=== PATIENT | female | born 1990 | race Two or more races ===

== ENCOUNTER 2019-03-08 15:18 | Emergency (ER) | payer BC ==
[2019-03-08] MEDS ORDERED: ACETAMINOPHEN 325 MG TABLET PO ONE (16:11)
--- NOTE | 2019-03-08 16:15 | ER Document Report ---
ED Medical Screen (RME) - General Chief Complaint: High Blood Pressure Stated Complaint: HIGH BLOOD PRESSURE Time Seen by Provider: 03/08/19 16:07 Notes: Patient is a G1, P0 28-year-old female who presents to the emergency department for an elevated blood pressure reading. Patient states that her blood pressure earlier was 152/102. Patient also states that she has a headache. She has not taken anything to help with her headache. Patient denies any abdominal pain, or any other symptoms. Denies any vomiting. Exam: Soft, nontender abdomen. Blood pressure here in the emergency department is 147/87. I have greeted and performed a rapid initial assessment of this patient. A comprehensive ED assessment and evaluation of the patient, analysis of test results and completion of medical decision making process will be conducted by an additional ED providers. Past Medical History - Social History Chew tobacco use (# tins/day): No Frequency of alcohol use: None Drug Abuse: None Physical Exam - Vital signs Vitals: Temp Pulse Resp BP Pulse Ox 98.3 F 96 20 147/87 H 98 03/08/19 15:24 03/08/19 15:24 03/08/19 15:24 03/08/19 15:24 03/08/19 15:24 Course - Vital Signs Vital signs: Temp Pulse Resp BP Pulse Ox 98.3 F 96 20 147/87 H 98 03/08/19 16:05 03/08/19 16:05 03/08/19 16:05 03/08/19 16:05 03/08/19 16:05
[2019-03-08 17:15] LABS: ALBUMIN 3.9 g/dL (3.5-5.0); ALKALINE PHOSPHATASE 59 U/L (38-126); ANION GAP 8 (5-19); ASPARTATE AMINO TRANSFERASE 16 U/L (14-36); BILIRUBIN,DIRECT 0.1 mg/dL (0.0-0.4); BILIRUBIN,TOTAL 0.2 mg/dL (0.2-1.3); BLOOD UREA NITROGEN 9 mg/dL (7-20); CALCIUM 9.5 mg/dL (8.4-10.2); CARBON DIOXIDE 22 mmol/L (22-30); CHLORIDE 108 mmol/L (98-107); GLUCOSE 89 mg/dL (75-110); POTASSIUM 4.2 mmol/L (3.6-5.0); TOTAL PROTEIN 7.1 g/dL (6.3-8.2)
[2019-03-08 17:23] LABS: ABSOLUTE EOSINOPHILS # (AUTO) 0.3 10^3/uL (0.0-0.6); ABSOLUTE LYMPHOCYTES (AUTO) 2.3 10^3/uL (0.5-4.7); ABSOLUTE MONOCYTES (AUTO) 0.8 10^3/uL (0.1-1.4); ABSOLUTE NEUT (AUTO) 8.2 10^3/uL (1.7-8.2); BASOPHILS % (AUTO) 0.4 % (0-2); EOSINOPHILS % (AUTO) 2.3 % (0-6); HEMATOCRIT 36.5 % (36.0-47.0); MEAN CORPUSCULAR HEMOGLOBIN 25.9 pg (27.0-33.4); MEAN CORPUSCULAR HGB CONC 32.8 g/dL (32.0-36.0); MEAN CORPUSCULAR VOLUME 79 fl (80-97); MONOCYTES % (AUTO) 6.8 % (3-13); PLATELET COUNT 343 10^3/uL (150-450); RED BLOOD COUNT 4.62 10^6/uL (3.72-5.28); RED CELL DISTRIBUTION WIDTH 14.6 % (11.5-14.0); SEGMENTED NEUTROPHILS % (AUTO) 70.5 % (42-78); TOTAL CELLS COUNTED % (AUTO) 100 %; WHITE BLOOD COUNT 11.6 10^3/uL (4.0-10.5)
[2019-03-08 17:43] LABS: AMORPHOUS SEDIMENT,URINE TRACE /HPF; APPEARANCE,URINE CLOUDY; BILIRUBIN,URINE NEGATIVE (NEGATIVE); COLOR,URINE YELLOW; GLUCOSE, URINE NEGATIVE (NEGATIVE); KETONES,URINE NEGATIVE (NEGATIVE); LEUKOCYTE ESTERASE,URINE LARGE (NEGATIVE); NITRITE,URINE NEGATIVE (NEGATIVE); PROTEIN,URINE NEGATIVE (NEGATIVE); URINE SPECIFIC GRAVITY 1.017; UROBILINOGEN,URINE NEGATIVE mg/dL (<2.0)
--- NOTE | 2019-03-08 20:45 | ER Document Report ---
ED General - General Chief Complaint: High Blood Pressure Stated Complaint: HIGH BLOOD PRESSURE Time Seen by Provider: 03/08/19 16:07 Primary Care Provider: KUN ROJAS MD [Primary Care Provider] - Follow up as needed Notes: Patient is a 28-year-old female that comes to the emergency department for chief complaint of headache and elevated blood pressure reading. Patient is G1, P0 at 17 weeks gestation. She states she was at work when she started getting a bad headache, she states that her boss checked her blood pressure and her blood pressure was 150 systolic and she was recommended to go to the emergency department. Patient states that after Tylenol her headache completely resolved, she states she feels fine otherwise. She denies nausea vomiting, chest pain, abdominal pain, vaginal bleeding or discharge. She denies any diagnosed medical problems or daily medications. Past Medical History - General Information source: Patient - Social History Smoking Status: Never Smoker Chew tobacco use (# tins/day): No Frequency of alcohol use: None Drug Abuse: None Lives with: Family Family History: Reviewed & Not Pertinent Patient has suicidal ideation: No Patient has homicidal ideation: No Surgical Hx: Negative - Immunizations Immunizations up to date: Yes Hx Diphtheria, Pertussis, Tetanus Vaccination: Yes Review of Systems - Review of Systems Constitutional: No symptoms reported EENT: No symptoms reported Cardiovascular: No symptoms reported Respiratory: No symptoms reported Gastrointestinal: No symptoms reported Genitourinary: No symptoms reported Female Genitourinary: No symptoms reported Musculoskeletal: No symptoms reported Skin: No symptoms reported Hematologic/Lymphatic: No symptoms reported Neurological/Psychological: No symptoms reported Physical Exam - Vital signs Vitals: Temp Pulse Resp BP Pulse Ox 98.3 F 96 20 147/87 H 98 03/08/19 15:24 03/08/19 15:24 03/08/19 15:24 03/08/19 15:24 03/08/19 15:24 - Notes Notes: GENERAL: Alert, interacts well. No acute distress. HEAD: Normocephalic, atraumatic. EYES: Pupils equal, round, and reactive to light. Extraocular movements intact. ENT: Oral mucosa moist, tongue midline. Oropharynx unremarkable. Airway patent. NECK: Full range of motion. Supple. Trachea midline. LUNGS: Clear to auscultation bilaterally, no wheezes, rales, or rhonchi. No respiratory distress. HEART: Regular rate and rhythm. No murmur ABDOMEN: Slightly gravid abdomen, nontender GENITOURINARY: Deferred EXTREMITIES: Moves all 4 extremities spontaneously. No edema, normal radial and dorsalis pedis pulses bilaterally. No cyanosis. BACK: no cervical, thoracic, lumbar midline tenderness. No saddle anesthesia, normal distal neurovascular exam. Moves all extremities in full range of motion. NEUROLOGICAL: Alert and oriented x3. Normal speech. Cranial nerves II through XII grossly intact. PSYCH: Normal affect, normal mood. SKIN: Warm, dry, normal turgor. No rashes or lesions noted. Course - Re-evaluation Re-evalutation: Blood pressure rechecked after I evaluate the patient and is in the 120s over 80s. Patient is before 20 weeks gestation, she does not currently have a headache, she denies chest pain, renal function unremarkable, LFTs, platelets, and urinalysis unremarkable without protein but is also contaminated and was therefore cultured. hCG unremarkable and elevated. Patient with no complaints asking to go home. Discussed all results with patient at length, discussed expectations, monitoring, OT and follow-up, and return precautions. She states appreciation and agreement. - Vital Signs Vital signs: Temp Pulse Resp BP Pulse Ox 98.4 F 98 22 H 128/88 H 99 03/08/19 20:54 03/08/19 20:54 03/08/19 20:54 03/08/19 20:54 03/08/19 20:54 - Laboratory Result Diagrams: 03/08/19 17:00 03/08/19 16:42 Laboratory results interpreted by me: 03/08/19 03/08/19 03/08/19 16:27 16:42 17:00 WBC 11.6 H MCV 79 L MCH 25.9 L RDW 14.6 H Chloride 108 H Beta HCG, Quant 52471.00 H Ur Leukocyte Esterase LARGE H Discharge - Discharge Clinical Impression: Elevated blood pressure reading Headache Qualifiers: Headache type: unspecified Headache chronicity pattern: acute headache Intractability: not intractable Qualified Code(s): R51 - Headache Condition: Stable Disposition: HOME, SELF-CARE Additional Instructions: Your evaluation today is reassuring. Take Tylenol for headache if needed, you can also take [id number] diphenhydramine for headaches in , stay hydrated and rest. 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 Return for any concerning symptoms including severe headache, vomiting, or any other concerning or worsening symptoms. Forms: Return to Work Referrals: KUN ROJAS MD [Primary Care Provider] - Follow up as needed
[2019-03-08 20:55] VITALS: BP 128/88
== END 2019-03-08 20:54 | disposition home or self-care (01) ==
LOC: ER 15:18
DX: O26.892 Other specified pregnancy related conditions, second trimester (principal); R03.0 Elevated blood-pressure reading, without diagnosis of hypertension; R51 Headache; Z3A.17 17 weeks gestation of pregnancy
CPT/HCPCS: 36415; 80053; 81001; 83735; 84702; 85025; 87086; 99283

== ENCOUNTER 2019-08-06 04:27 | Inpatient (IN) | payer BC ==
[2019-08-06 05:19] LABS: APPEARANCE,URINE CLOUDY; BILIRUBIN,URINE NEGATIVE (NEGATIVE); COLOR,URINE YELLOW; GLUCOSE, URINE NEGATIVE (NEGATIVE); KETONES,URINE NEGATIVE (NEGATIVE); LEUKOCYTE ESTERASE,URINE LARGE (NEGATIVE); NITRITE,URINE NEGATIVE (NEGATIVE); PROTEIN,URINE 30 mg/dL (NEGATIVE); URINE SPECIFIC GRAVITY 1.008; UROBILINOGEN,URINE NEGATIVE mg/dL (<2.0)
[2019-08-06 05:34] LABS: URINE AMPHETAMINES SCREEN NEGATIVE; URINE BARBITURATES SCREEN NEGATIVE; URINE BENZODIAZEPINES SCREEN NEGATIVE; URINE COCAINE SCREEN NEGATIVE; URINE MARIJUANA (THC) SCREEN NEGATIVE; URINE METHADONE SCREEN NEGATIVE; URINE PHENCYCLIDINE SCREEN NEGATIVE
[2019-08-06] MEDS ORDERED: RINGERS SOLUTION,LACTATED 1,000 ML IV ONE (05:53)
[2019-08-06] MEDS ORDERED: RINGERS SOLUTION,LACTATED 1,000 ML IV PRN (05:53)
[2019-08-06] MEDS ORDERED: MISOPROSTOL 0.2 MG TABLET ONE ×2 (06:09→07:38)
[2019-08-06] MEDS ORDERED: OXYTOCIN 10 UNIT/ML VIAL ONE ×2 (06:09→07:38)
[2019-08-06] MEDS ORDERED: OXYTOCIN/NORMAL SALINE 0 UNIT/0 ML RTUINJ ONE (06:09)
[2019-08-06] MEDS ORDERED: LIDOCAINE 1% INJ-PF (10 MG/ML) 30 ML SDV ONE ×2 (06:09→07:38)
[2019-08-06] MEDS ORDERED: GENTAMICIN SULFATE INJ 80 MG/2 ML VIAL IM ONE (06:33)
[2019-08-06] MEDS ORDERED: GENTAMICIN SULFATE INJ 80 MG/2 ML VIAL IV ONE (06:33)
[2019-08-06] MEDS ORDERED: AMPICILLIN SOD INJ 2 GM VIAL ONE (06:34)
[2019-08-06 06:46] LABS: ABSOLUTE BASOPHILS # (AUTO) 0.1 10^3/uL (0.0-0.2); ABSOLUTE EOSINOPHILS # (AUTO) 0.2 10^3/uL (0.0-0.6); ABSOLUTE MONOCYTES (AUTO) 0.9 10^3/uL (0.1-1.4); ABSOLUTE NEUT (AUTO) 7.8 10^3/uL (1.7-8.2); BASOPHILS % (AUTO) 0.7 % (0-2); EOSINOPHILS % (AUTO) 1.5 % (0-6); HEMATOCRIT 34.8 % (36.0-47.0); HEMOGLOBIN 11.6 g/dL (12.0-15.5); MEAN CORPUSCULAR HEMOGLOBIN 23.6 pg (27.0-33.4); MEAN CORPUSCULAR HGB CONC 33.3 g/dL (32.0-36.0); MEAN CORPUSCULAR VOLUME 71 fl (80-97); MONOCYTES % (AUTO) 8.5 % (3-13); PLATELET COUNT 339 10^3/uL (150-450); RED CELL DISTRIBUTION WIDTH 17.4 % (11.5-14.0); SEGMENTED NEUTROPHILS % (AUTO) 71.3 % (42-78); TOTAL CELLS COUNTED % (AUTO) 100 %; WHITE BLOOD COUNT 10.9 10^3/uL (4.0-10.5)
[2019-08-06] MEDS ORDERED: GENTAMICIN SULFATE INJ 80 MG/2 ML VIAL ONE (07:01)
--- NOTE | 2019-08-06 07:10 | Admission Physical ---
Datetime Report Generated by CPN: 08/06/2019 07:10 CURRENT ADMISSION Chief Complaint: Suspected Ruptured Membranes Indication for Induction: PROM Admit Impression : Term, Intrauterine ; No Active Labor; Ruptured Membranes; Induction of Labor Admit Plan: Admit to Unit; Initiate Labor Induction Protocol ALLERGIES Medication Allergies: No Medication Allergies: No Known Allergies (08/06/2019) Latex: No Latex Allergies OBSTETRICAL HISTORY EDC: 08/10/2019 00:00 : 1 Para: 0 Term: 0 : 0 SAB: 0 IAB: 0 Livin Cesareans: 0 VBACs: 0 Multiple Births: 0 Gestational Diabetes: Yes Rh Sensitization: No Incompetent Cervix: No SUSAN: No Infertility: No ART Treatment: No Uterine Anomaly: No IUGR: No Hx Previous C/S: No Macrosomia: No Hx Loss/Stillborn: No PIH: No Hx : No Placenta Previa/Abruption: No Depression/PP Depression: No PTL/PROM: No Post Hemorrhage: No Current Procedures: Ultrasound; NST SEE RECORDS Alcohol: No Marijuana : No Cocaine: No Other Illicit Drugs: No Cigarettes: Never Smoker. 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 Heart Disease: No Hosp/Surgery: No Autoimmune Disorder: No Anesthetic Complications: No Kidney Disease: No Abnormal Pap Smear: No Neuro/Epilepsy: No Psychiatric Disorders: No Other Medical Diseases: No Hepatitis/Liver Disease: No Significant Family History: No Varicosities/Phlebitis: No Trauma/Violence : No Thyroid Dysfunction: No INFECTIOUS HISTORY Gonorrhea: No Genital Herpes: No Chlamydia: No Tuberculosis: No Syphilis: No Hepatitis: No HIV/AIDS Exposure: No Rash or Viral Illness: No HPV: No PHYSICAL EXAM General: Normal HEENT: Normal Neurologic: Normal Thyroid: Deferred Heart: Normal Lungs: Normal Breast: Deferred Back: Normal Abdomen: Normal Genitourinary Exam: Normal Extremities: Normal DTRs: Normal Pelvic Type: Adequate Vital Signs: Reviewed VAGINAL EXAM Dilatation: 3 Effacement: 75 Station: -2 Contraction Comments: rare MEMBRANES Membranes: Ruptured Amniotic Fluid Color: Clear FETUS A EGA: 39.3 Monitoring: External US FHR- Baseline: 125 Variability: Moderate 6-25bpm Accelerations: 15X15 Decelerations: None FHR Category: Category I Presentation: Vertex Admit Comment: 29yo at 39+3ega presents for rupture of memranes at approx 1100 on 08/04. A2GDM - gyburide. cvx /-2 at last visit. GBS negative. Prolonged rupture of membranes. Start Amp/Gent for prolonged Rupture of membranes. Anticipate . Pitocin for IOL. PLANS FOR LABOR AND DELIVERY Pain Management: None Feeding Preference: Both INFORMED CONSENT Informed Consent Obtained: Vaginal Delivery; Induction of Labor; Risks, Benefits and Alternatives Discussed Signature: with User ID: [email or web address]
[2019-08-06] MEDS ORDERED: OXYTOCIN/NORMAL SALINE 20 UNIT/1,000 ML RTUINJ IV PRN ×2 (07:12→19:55)
[2019-08-06] MEDS ORDERED: OXYTOCIN/NORMAL SALINE 20 UNIT/1,000 ML RTUINJ ONE (07:38)
[2019-08-06] MEDS ORDERED: WATER IV ONE (08:30)
[2019-08-06] MEDS ORDERED: DEXTROSE 5% IV ONE (08:30)
[2019-08-06] MEDS ORDERED: GENTAMICIN SULFATE IV ONE (08:30)
[2019-08-06] MEDS ORDERED: AMPICILLIN SODIUM 1 GM in NORMAL SALINE 50 ML IV SCH (12:00)
[2019-08-06] MEDS ORDERED: AMPICILLIN SOD INJ 1 GM VIAL ONE (12:28)
[2019-08-06] MEDS: AMPICILLIN SODIUM 1 GM in NORMAL SALINE 50 ML IV SCH ×2 (12:45→18:40)
[2019-08-06] MEDS ORDERED: MORPHINE SULFATE 10 MG/ML INJ IV ONE (13:24)
[2019-08-06] MEDS ORDERED: PROMETHAZINE HCL INJ 25 MG/1 ML VIAL IV ONE (13:24)
[2019-08-06] MEDS ORDERED: MORPHINE SULFATE 10 MG/ML INJ ONE (13:30)
[2019-08-06] MEDS ORDERED: PROMETHAZINE HCL INJ 25 MG/1 ML VIAL ONE (13:30)
[2019-08-06] MEDS ORDERED: GENTAMICIN SULFATE INJ 80 MG/2 ML VIAL IV SCH (14:00)
[2019-08-06] MEDS ORDERED: GENTAMICIN SULFATE 175 MG in DEXTROSE 5%-WATER 100 ML IV SCH (15:00)
[2019-08-06] MEDS ORDERED: EPHEDRINE SULFATE INJ 50 MG/1 ML AMPULE ONE (17:11)
[2019-08-06] MEDS ORDERED: BUPIVACAINE HCL 0.25 % INJ/PF (2.5 MG/1 ML) 30 ML VIAL ONE (17:12)
[2019-08-06] MEDS ORDERED: FENTANYL/BUPIVACAINE/NS/PF 0 MCG/0 ML RTUINJ EPI ONE (17:12)
[2019-08-06] MEDS ORDERED: ACETAMINOPHEN 650 MG SUPP.RECT PR PRN (19:55)
[2019-08-06] MEDS ORDERED: ACETAMINOPHEN WITH CODEINE #3 TABLET PO PRN ×2 (19:55)
[2019-08-06] MEDS ORDERED: PSEUDOEPHEDRINE HCL 30 MG TABLET PO PRN (19:55)
[2019-08-06] MEDS ORDERED: PROMETHAZINE HCL 25 MG TABLET PO PRN (19:55)
[2019-08-06] MEDS ORDERED: DIPHENHYDRAMINE HCL 25 MG CAPSULE PO PRN (19:55)
[2019-08-06] MEDS ORDERED: ZOLPIDEM TARTRATE 5 MG TABLET PO PRN (19:55)
[2019-08-06] MEDS ORDERED: GLYCERIN/WITCH HAZEL LEAF 1 EACH MED..WIPE TP PRN (19:55)
[2019-08-06] MEDS ORDERED: DIPH/PERTUSS(ACELL)/TETANUS VAC/PF 0.5 ML SYR (>=10YO) IM PRN (19:55)
[2019-08-06] MEDS ORDERED: BENZOCAINE/MENTHOL AEROSOL SPRAY 56 ML TOP PRN (19:55)
[2019-08-06] MEDS ORDERED: MEASLES,MUMPS&RUBELLA VACC/PF 0.5 ML VIAL SUBCUT PRN (19:55)
[2019-08-06] MEDS ORDERED: PROMETHAZINE HCL 25 MG SUPP.RECT PR PRN (19:55)
[2019-08-06] MEDS ORDERED: PROMETHAZINE HCL INJ 25 MG/1 ML VIAL IV PRN (19:55)
[2019-08-06] MEDS ORDERED: MAGNESIUM HYDROXIDE SUSP 30 ML UDCUP PO PRN (19:55)
[2019-08-06] MEDS ORDERED: DIBUCAINE 1% OINTMENT 28 GM TP PRN (19:55)
[2019-08-06] MEDS ORDERED: NA PHOS,M-B/NA PHOS,DI-BA (ADULT) 133 ML ENEMA PR PRN (19:55)
[2019-08-06] MEDS: FAMOTIDINE 20 MG TABLET PO SCH (23:28)
[2019-08-06] MEDS: IBUPROFEN 800 MG TABLET PO SCH (23:28)
[2019-08-07] MEDS: IBUPROFEN 800 MG TABLET PO SCH ×3 (05:13→21:35)
[2019-08-07 06:57] LABS: HEMATOCRIT 31.9 % (36.0-47.0); HEMOGLOBIN 10.6 g/dL (12.0-15.5); MEAN CORPUSCULAR HEMOGLOBIN 23.4 pg (27.0-33.4); MEAN CORPUSCULAR HGB CONC 33.4 g/dL (32.0-36.0); MEAN CORPUSCULAR VOLUME 70 fl (80-97); PLATELET COUNT 365 10^3/uL (150-450); RED BLOOD COUNT 4.54 10^6/uL (3.72-5.28); RED CELL DISTRIBUTION WIDTH 17.4 % (11.5-14.0); WHITE BLOOD COUNT 21.4 10^3/uL (4.0-10.5)
[2019-08-07] MEDS: SENNOSIDES/DOCUSATE 8.6-50 MG 1 EACH TABLET PO SCH (10:12)
[2019-08-07] MEDS: FAMOTIDINE 20 MG TABLET PO SCH ×2 (10:12→21:35)
[2019-08-07] MEDS: PRENATAL VITAMIN W DHA CAPSULE PO SCH (10:12)
[2019-08-07] MEDS: DOCUSATE SODIUM 100 MG CAPSULE PO SCH ×2 (10:12→17:56)
[2019-08-07] MEDS: FERROUS SULFATE 325 MG TABLET PO SCH ×2 (10:13→17:56)
--- NOTE | 2019-08-07 16:48 | PDOC PROGRESS REPORT ---
Subjective-OB Progress Note for:: 08/07/19 Subjective: reports bleeding slowing, pain controlled with current meds. denies needs Physical Exam (OB) Vital Signs: Temp Pulse Resp BP Pulse Ox 97.7 F 81 16 133/83 H 100 08/07/19 07:24 08/07/19 07:24 08/07/19 07:24 08/07/19 07:24 08/07/19 07:24 Intake & Output 08/06/19 08/07/19 08/08/19 06:59 06:59 06:59 Intake Total 50 600 Output Total 1000 Balance -950 600 Weight 115.9 kg - Abdomen Description: Soft Hernia Present: No Fundal Description: Firm, Midline Fundal Height: u/u - u/2 - Abdominal Distension: No distension Tenderness: Nontender - Extremities Lower extremities: Pam's sign - neg Calf: Normal, Nontender Objective-Diagnostic Laboratory: 08/07/19 06:15 08/07/19 06:15 WBC 21.4 H RBC 4.54 Hgb 10.6 L Hct 31.9 L MCV 70 L MCH 23.4 L MCHC 33.4 RDW 17.4 H Plt Count 365 Assessment and Plan(PN) - Time Spent with Patient Time with patient: Less than 15 minutes - Disposition Anticipated Discharge: Home Within: within 24 hours
[2019-08-08] MEDS: IBUPROFEN 800 MG TABLET PO SCH ×2 (05:03→13:33)
[2019-08-08 08:27] VITALS: BP 138/91
[2019-08-08] MEDS: FERROUS SULFATE 325 MG TABLET PO SCH (10:11)
[2019-08-08] MEDS: SENNOSIDES/DOCUSATE 8.6-50 MG 1 EACH TABLET PO SCH (10:11)
[2019-08-08] MEDS: DOCUSATE SODIUM 100 MG CAPSULE PO SCH (10:11)
[2019-08-08] MEDS: PRENATAL VITAMIN W DHA CAPSULE PO SCH (10:11)
[2019-08-08] MEDS: FAMOTIDINE 20 MG TABLET PO SCH (10:11)
[2019-08-08 13:39] LABS: HEMATOCRIT 30.6 % (36.0-47.0); HEMOGLOBIN 9.9 g/dL (12.0-15.5); MEAN CORPUSCULAR HEMOGLOBIN 23.3 pg (27.0-33.4); MEAN CORPUSCULAR HGB CONC 32.4 g/dL (32.0-36.0); MEAN CORPUSCULAR VOLUME 72 fl (80-97); PLATELET COUNT 372 10^3/uL (150-450); RED BLOOD COUNT 4.24 10^6/uL (3.72-5.28); RED CELL DISTRIBUTION WIDTH 17.4 % (11.5-14.0); WHITE BLOOD COUNT 11.4 10^3/uL (4.0-10.5)
--- NOTE | 2019-08-08 14:45 | PDOC DISCHARGE SUMMARY ---
Impression - Admit/DC Date/PCP Admission Date/Primary Care Provider: 08/06/19 05:30 Discharge Date: 08/08/19 - Discharge Diagnosis (1) Gestational diabetes mellitus Is this a current diagnosis for this admission?: Yes (2) Perineal laceration during delivery, delivered Is this a current diagnosis for this admission?: Yes (3) Prolonged rupture of membranes Is this a current diagnosis for this admission?: Yes (4) Vaginal delivery Is this a current diagnosis for this admission?: Yes - Assessment Summary: 29yo G1 now P1 s/p ppd 2 stable and ready for discharge, denies hx of HTN, will schedule visit for BP check at office tuesday. Understands warning s/s - Additional Information Resuscitation Status: Full Code Discharge Diet: As Tolerated, Regular Discharge Activity: Activity As Tolerated, Balance Activity w/Rest, No Lifting Over 10 Pounds, Pelvic Rest, No tub bath, Walk Frequently Referrals: [facility] [Provider Group] (Call to schedule your 4 week follow up ) Prescriptions: Ibuprofen [Motrin 800 mg Tablet] 800 mg PO Q8HP PRN #20 tablet PRN Reason: Home Medications: Prenat 115/Iron Fum/Folic/Dss [ 19 Tablet] 1 tab PO DAILY 08/06/19 Ibuprofen [Motrin 800 mg Tablet] 800 mg PO Q8HP PRN #20 tablet 08/08/19 Results Laboratory Results: WBC 21.4 10^3/uL (4.0-10.5) H 08/07/19 06:15 RBC 4.54 10^6/uL (3.72-5.28) 08/07/19 06:15 Hgb 10.6 g/dL (12.0-15.5) L 08/07/19 06:15 Hct 31.9 % (36.0-47.0) L 08/07/19 06:15 MCV 70 fl (80-97) L 08/07/19 06:15 MCH 23.4 pg (27.0-33.4) L 08/07/19 06:15 MCHC 33.4 g/dL (32.0-36.0) 08/07/19 06:15 RDW 17.4 % (11.5-14.0) H 08/07/19 06:15 Plt Count 365 10^3/uL (150-450) 08/07/19 06:15 Lymph % (Auto) 18.0 % (13-45) 08/06/19 06:17 [place] % (Auto) 8.5 % (3-13) 08/06/19 06:17 Eos % (Auto) 1.5 % (0-6) 08/06/19 06:17 Baso % (Auto) 0.7 % (0-2) 08/06/19 06:17 Absolute Neuts (auto) 7.8 10^3/uL (1.7-8.2) 08/06/19 06:17 Absolute Lymphs (auto) 2.0 10^3/uL (0.5-4.7) 08/06/19 06:17 Absolute Monos (auto) 0.9 10^3/uL (0.1-1.4) 08/06/19 06:17 Absolute Eos (auto) 0.2 10^3/uL (0.0-0.6) 08/06/19 06:17 Absolute Basos (auto) 0.1 10^3/uL (0.0-0.2) 08/06/19 06:17 Seg Neutrophils % 71.3 % (42-78) 08/06/19 06:17 POC Glucose 89 mg/dL (70-110) 08/06/19 07:31 Urine Color YELLOW 08/06/19 04:38 Urine Appearance CLOUDY 08/06/19 04:38 Urine pH 6.0 (5.0-9.0) 08/06/19 04:38 Ur Specific [place] 1.008 08/06/19 04:38 Urine Protein 30 mg/dL (NEGATIVE) H 08/06/19 04:38 Urine Glucose (UA) NEGATIVE mg/dL (NEGATIVE) 08/06/19 04:38 Urine Ketones NEGATIVE mg/dL (NEGATIVE) 08/06/19 04:38 Urine Blood LARGE (NEGATIVE) H 08/06/19 04:38 Urine Nitrite NEGATIVE (NEGATIVE) 08/06/19 04:38 Urine Bilirubin NEGATIVE (NEGATIVE) 08/06/19 04:38 Urine Urobilinogen NEGATIVE mg/dL (<2.0) 08/06/19 04:38 Ur Leukocyte Esterase LARGE (NEGATIVE) H 08/06/19 04:38 Urine Ascorbic Acid NEGATIVE (NEGATIVE) 08/06/19 04:38 Membranes Rupture POSITIVE (NEGATIVE) H 08/06/19 04:50 Urine Opiates Screen NEGATIVE 08/06/19 04:38 Urine Methadone Screen NEGATIVE 08/06/19 04:38 Ur Barbiturates Screen NEGATIVE 08/06/19 04:38 Ur Phencyclidine Scrn NEGATIVE 08/06/19 04:38 Ur Amphetamines Screen NEGATIVE 08/06/19 04:38 U Benzodiazepines Scrn NEGATIVE 08/06/19 04:38 Urine Cocaine Screen NEGATIVE 08/06/19 04:38 U Marijuana (THC) Screen NEGATIVE 08/06/19 04:38 RPR NONREACTIVE (NONREACTIVE) 08/06/19 06:17 Blood Type A POSITIVE 08/06/19 06:17 Antibody Screen NEGATIVE 08/06/19 06:17
--- NOTE | 2019-08-09 17:46 | Delivery Summary ---
Del Sum A-C Datetime Report Generated by CPN: 08/09/2019 17:46 DELIVERY PERSONNEL DELIVERY PERSONNEL: [id number] Delivery Doctor:: Elvira Merchant MD Labor and Delivery Nurse:: Maya Bolaños RNburglar alarm assembler Nurse:: JOSEFA Holden Irradiated Fuel Handler/CORRECTIONAL COOK: Yarelis Pagan CST Additional Personnel: : Suzy Kellogg RN MATERNAL INFORMATION Delivery Anesthesia: None Medications After Delivery: Pitocin Drip 20 Units/1000ml NSS Delivery QBL: 100 Maternal Complications: Other Other Maternal Complications: longer rom Complication Details: PROLONGED ROM- 5/3 @ 1100 LABOR SUMMARY EDC: 08/10/2019 00:00 No. Babies in Womb: 1 Attempted: No Labor Anesthesia: IV Sedation LABOR INFORMATION Reason for Induction: Not Applicable Onset of Labor: 08/06/2019 09:00 Complete Dilatation: 08/06/2019 18:48 Oxytocin: Augmentation Group B Beta Strep: negative Antibiotics # of Doses: AMPICILLIN X 3; GENTAMCIN x2 Antibiotics Time of Last Dose: 1840 Steroids Given: None Reason Steroids Not Administered: Not Applicable MEMBRANES Membranes Rupture Method: Spontaneous Rupture of Membranes: 08/05/2019 11:00 Length of Rupture (hr): 32.65 Amniotic Fluid Color: Light Meconium Amniotic Fluid Amount: Moderate Amniotic Fluid Odor: Normal STAGES OF LABOR Stage 1 hr: 9 Stage 1 min: 48 Stage 2 hr: 0 Stage 2 min: 51 Stage 3 hr: 0 Stage 3 min: 9 Total Time in Labor hr: 10 Total Time in Labor min: 48 VAGINAL DELIVERY Episiotomy: None Laceration #1: Vaginal Laceration Extension #1: First Degree Laceration #2: Vaginal Laceration Extension #2: First Degree Laceration #3: None Laceration Extension #3: N/A Laceration Repair: Yes Laceration Repair Note: Repair of two small vaginal laceration with interupted 3-0 chromic sutures. Sponge Count Correct: N/A Sharps Count Correct: N/A CSECTION DELIVERY Primary Indication: N/A Secondary Indication: N/A CSection Incidence: N/A Labor: N/A Elective: N/A BABY A INFORMATION Delivery Date/Time: 08/06/2019 19:39 Method of Delivery: Vaginal Born in Route : No : N/A Forceps: N/A Vacuum Extraction: N/A Shoulder Dystocia : Yes SHOULDER DYSTOCIA BABY A Delivery of Head: 08/06/2019 19:38 Time Head to Delivery : 1.0 1st Intervention to Resolve: McRobert's Maneuver Verify NO Fundal Pressure: No Fundal Pressure Applied Arm Under Symphisis at Del: Right PRESENTATION/POSITION BABY A Presentation: Cephalic Presentation: Cephalic Presentation: Cephalic Presentation: Cephalic Cephalic Presentation: Vertex Vertex Position: Left Occipital Anterior Breech Presentation: N/A PLACENTA INFORMATION BABY A Placenta Delivery Time : 08/06/2019 19:48 Placenta Method of Delivery: Spontaneous Placenta Status: Delivered SCORES BABY A Heart Rate 1 min: >100 bpm Resp Effort 1 min: Good Cry Reflex Irritability 1 min: Cough or Sneeze or Pulls Away Muscle Tone 1 min: Some Flexion of Extremities Color 1 min: Body [place], Extremities Blue Resuscitation Effort 1 min: Tactile Stimulation SCORE 1 MIN: 8 Heart Rate 5 min: >100 bpm Resp Effort 5 min: Good Cry Reflex Irritability 5 min: Cough or Sneeze or Pulls Away Muscle Tone 5 min: Active Motion Color 5 min: Body [place], Extremities Blue Resuscitation Effort 5 min: Tactile Stimulation SCORE 5 MIN: 9 INFORMATION BABY A Gestational Age at Delivery: 39.3 Gestational Status: Full Term- 39- 40.6 Weeks Outcome : Liveborn Condition : Stable Infant Sex: Female IDENTIFICATION BABY A Verification Date/Time: 08/06/2019 20:06 ID Band Number: [id number] Mother's Name Verified: Yes Infant RN Verifying : Jhonathan Bolaños RN/ Rohit Kellogg RN WEIGHT/LENGTH BABY A Infant Birthweight (gm): 4058 Infant Weight (lb): 8 Infant Weight (oz): 15 Infant Length (in): 20.75 Length (cm): 52.71 CORD INFORMATION BABY A No. Cord Vessels: 3 Nuchal Cord : N/A Cord Blood Taken: Yes-For Storage (Mom's Blood type +) Infant Suction: Mouth; Nose ASSESSMENT BABY A Complications: Shoulder Dystocia Complications- Other: 40 seconds Physical Findings at Delivery: Molding of the Head; Bruising Infant Respirations: Appears Normal Skin to Skin: Yes Herbicide Sprayer/ALS Called : No Infant Care By: Karina Elizabeth RN Transferred To: Remains with Mother BABY B INFORMATION : N/A SIGNATURES Signature: with User ID: [email or web address]
== END 2019-08-08 14:40 | disposition home or self-care (01) | DRG 807 ==
LOC: LC 04:27 → LR 05:30 → 2S 22:05
PROVIDERS: ADMIT Obstetrics & Gynecology; ATTEND Obstetrics & Gynecology
PROC: 10E0XZZ Delivery of Products of Conception, External Approach (ICD-10-PCS; principal; 2019-08-06)
PROC: 0HQ9XZZ Repair Perineum Skin, External Approach (ICD-10-PCS; 2019-08-06)
DX: O24.425 Gestational diabetes mellitus in childbirth, controlled by oral hypoglycemic drugs (principal); Z37.0 Single live birth; O70.0 First degree perineal laceration during delivery; O66.0 Obstructed labor due to shoulder dystocia; Z3A.39 39 weeks gestation of pregnancy
CPT/HCPCS: 36415; 59025; 80307; 81005; 82962; 84112; 85025; 85027; 86592; 86850; 86900; 86901; 94760; J0290; J1580; J2270; J2550; J2590; J3010; J3490; J7060

== ENCOUNTER → 2020-01-22 | Outpatient (CLI) | payer BC, MEDICAID ==
--- NOTE | 2020-01-22 18:14 | RADIOLOGY REPORT (SQ) ---
EXAM DESCRIPTION: U/S [id number] TRNABD 1GES W/ODOP IMAGES COMPLETED DATE/TIME: 01/22/2020 5:39 pm REASON FOR STUDY: Z34.81 ENCOUNTER FOR SUPRVSN OF NORMAL , FIRST TRIMESTER Z34.81 ENCOUNTE R FOR SUPRVSN OF NORMAL , FIRST TRIM COMPARISON: None. TECHNIQUE: Transvaginal static and realtime grayscale images acquired of the pelvis. Additional lonnie cted spectral and color Doppler images recorded. All images stored on PACs. CLINICAL AGE: 10 weeks 1 days bHCG: Not available. LIMITATIONS: None. FINDINGS: UTERUS: No masses. No anomalies. GESTATIONAL SAC: Normal shape. YOLK SAC: No. POLE: None present. RIGHT ADNEXA: Ovary not identified due to poor acoustical window. No adnexal free fluid. No adnexal masses. LEFT ADNEXA: Ovary not identified due to poor acoustical window. No adnexal free fluid. No adnexal masses. FREE FLUID: None. OTHER: No other significant finding. Cervical length: 4 cm IMPRESSION: POSSIBLE EARLY INTRAUTERINE . Gestational measures 6 weeks 2 days. BHCG LEVEL NOT AVAILABLE FOR CORRELATION WITH US FINDINGS. CONSIDER F/U BHCG AND/OR ULTRASOUND FOR VERIFICATION AND TO EXCLUDE ECTOPIC . Trimester of : First trimester - 0 to 13 weeks. TECHNICAL DOCUMENTATION: JOB ID: [id number] 2010 [employer]- All Rights Reserved Reading location - IP/workstation name: [email or web address]
== END ==
LOC: RAD 14:48
PROVIDERS: ATTEND Midwife
DX: Z34.81 Encounter for supervision of other normal pregnancy, first trimester (principal)
CPT/HCPCS: 76801